=== PATIENT | female | born 1995 | race Two or more races ===

== ENCOUNTER 2024-03-17 14:29 | Emergency (ER) | payer OTHER ==
[~2024-03-17] VITALS: Ht 165.1 cm; Wt 104.7 kg
--- NOTE | 2024-03-17 15:12 | ED.PDOC ---
GI ASSESSMENT HPI Comments 28Y F presents to ED for chief complaint RLQ abd pain x3days with nausea and vomiting. Pt denies diarrhea, fever, cough, dysuria, and all other symptoms. Pt states abd pain worsens while urinating. LMP approximately 2 weeks ago. Pt used heating pad and Tylenol but did not feel relief from the symptoms. Chief Complaint: Abdominal Pain Time Seen by MD: 14:44 Reviewed Notes: Nurses Notes, Medications, Allergies Allergies: Coded Allergies: NO KNOWN ALLERGIES (Unverified , 03/17/24) Information Source: Patient Mode of Arrival: Ambulatory Timing: Days Duration: Since onset Quality: Sharp Vomitus: Watery Stool: Normal Severity: Mild Recent: None Recent Hx of: None Pain Location: RLQ Modifying Factors: Nothing Associated sign and symptoms: Nausea, Vomiting, Abdominal Pain Past Medical History PAST MEDICAL HISTORY: Denies Surgical History: Denies all surgeries PEAT SHREDDER TENDER History: No Pertinent PEAT SHREDDER TENDER History Family History Family History: Unknown Social History Smoker: Non-Smoker Alcohol: Denies ETOH Use Drugs: Denies Drug Use Lives In: Home Constitutional: denies: chills, diaphoresis, fatigue, fever, malaise, sweats, weakness, others EENTM: denies: blurred vision, double vision, ear bleeding, ear discharge, ear drainage, ear pain, ear ringing, eye pain, eye redness, hearing loss, mouth pain, mouth swelling, nasal discharge, nose bleeding, nose congestion, nose pain , photophobia, tearing, throat pain, throat swelling, voice changes, others Respiratory: denies: cough, hemoptysis, orthopnea, SOB at rest, shortness of breath, SOB with excertion, stridor, wheezing, others Cardiovascular: denies: chest pain, dizzy spells, diaphoresis, Dyspnea on exertion, edema, irregular heart beat, left arm pain, lightheadedness, palpitations, PND, syncope, others Gastrointestinal: reports: abdominal pain, nausea, vomiting; denies: abdomen distended, blood streaked bowels, constipated, diarrhea, dysphagia, difficulty swallowing, hematemesis, melena, poor appetite, poor fluid intake, rectal bleeding, rectal pain, others Genitourinary: denies: abnormal vagina bleeding, burning, dyspareunia, dysuria, flank pain, frequency, hematuria, incontinence, pain, , vagina discharge, urgency, others Neurological: denies: dizziness, fainting, headache, left sided numbness, left sided weakness, numbness, paresthesia, pre-existing deficit, right sided nu mbness, right sided weakness, seizure, speech problems, tingling, tremors, weakness, others Musculoskeletal: denies: back pain, gout, joint pain, joint swelling, muscle pain, muscle stiffness, neck pain, others Integumetry: denies: bruises, change in color, change in hair/nails, dryness, laceration, lesions, lumps, rash, wounds, others Allergic/Immunocompromised: denies: Difficulty Healing, Frequent Infections, Hives, Itching, others Hematologic/Lymphatic: denies: anemia, blood clots, easy bleeding, easy bruising, swollen glands, others Endocrine: denies: excessive hunger, excessive sweating, excessive thirst, excessive urination, flushing, intolerance to cold, intolerance to heat, unexplained weight gain, unexplained weight loss, others Psychiatric: denies: anxiety, bipolar disorder, depression, hopeless, panic disorder, schizophrenia, sleepless, suicidal, others All Other Systems: Reviewed and Negative Physical Exam General Appearance: No Apparent Distress, Normal HEENT: Normal ENT Inspection, Pharynx Normal, TMs Normal Neck: Full Range of Motion, Non-Tender, Normal, Normal Inspection Respiratory: Chest Non-Tender, Lungs Clear, No Accessory Muscle Use, No Respiratory Distress, Normal Breath Sounds Cardiovascular: No Edema, No JVD, No Murmur, No Gallop, Normal Peripheral Pulses, Regular Rate/Rhythm Breast Exam: Deferred Gastrointestinal: No Organomegaly, Non Tender, No Pulsatile Mass, Normal Bowel Sounds, Soft Genitalia: Deferred Pelvic: Deferred Rectal: Deferred Extremities: No calf tenderness, Normal capillary refill, Normal inspection, Normal range of motion, Non-tender, No pedal edema Musculoskeletal : Apperance: Normal Neurologic: Alert, nursing assistants teacher II-XII nml as Tested, No Motor Deficits, Normal Affect, Normal Mood, No Sensory Deficits Cerebellar Function: NOT DONE Reflexes: NOT DONE Skin: Dry, Normal Color, Warm Lymphatic: No Adenopathy Was a procedure done? Was a procedure done?: No GI differential Dx Differential Diagnosis: Appendicitis, Gastritis/PUD, Gastroenteritis, Electrolyte Imbalance, Bacterial, Viral X-Ray, Labs, Meds, VS Vital Signs Date Time Temp Pulse Resp B/P (MAP) Pulse Ox O2 Delivery O2 Flow Rate FiO2 03/17/24 18:56 91 16 95 Room Air* 0 21 03/17/24 18:42 98.9 91 16 152/83 (106) 95 98.9 03/17/24 18:42 91 16 95 Room Air 03/17/24 14:38 98.9 91 18 148/86 (106) 95 Lab Test 03/17/24 16:19 03/17/24 15:11 Range/Units Urine Color Light-orange Yellow Urine Clarity Ex.turbid Clear Urine pH 5.5 5.0-9.0 Urine Specific [place] 1.033 1.001-1.035 Urine Protein Trace H Negative Urine Ketones Negative Negative Urine Blood Negative Negative /uL Urine Nitrite Negative Negative Urine Bilirubin Negative Negative Urine Urobilinogen Normal Negative mg/dL Urine Leukocyte Esterase Negative Negative /uL Urine RBC 2 0 - 4 /hpf Urine WBC 33 0 - 5 /hpf Urine Squamous Epithelial Cells Few <5 /hpf Urine Bacteria None seen None Seen /hpf Urine Mucus Few None Seen Urine Glucose Normal Normal mg/dL Urine Test Negative Negative White Blood Count 10.6 4.4-10.8 10^3/uL Red Blood Count 5.20 4.0-5.20 10^6/uL Hemoglobin 15.5 12.2-16.2 g/dL Hematocrit 45.3 36.0-46.0 % Mean Corpuscular Volume 87.0 80.0-100.0 fL Mean Corpuscular Hemoglobin 29.8 28.0-32.0 pg Mean Corpuscular Hemoglobin Concent 34.3 32.0-36.0 g/dL Red Cell Distribution Width 13.6 11.8-14.3 % Platelet Count 346 140-450 10^3/uL Mean Platelet Volume 7.1 6.9-10.8 fL Neutrophils (%) (Auto) 63.6 37.0-80.0 % Lymphocytes (%) (Auto) 29.0 10.0-50.0 % Monocytes (%) (Auto) 6.0 0.0-12.0 % Eosinophils (%) (Auto) 1.0 0.0-7.0 % Basophils (%) (Auto) 0.4 0.0-2.0 % Neutrophils # (Auto) 6.7 1.6-8.6 10 ^3/uL Lymphocytes # (Auto) 3.1 0.4-5.4 10 ^3/uL Monocytes # (Auto) 0.6 0-1.3 10 ^3/uL Eosinophils # (Auto) 0.1 0-0.8 10 ^3/uL Basophils # (Auto) 0 0-0.2 10 ^3/uL Nucleated Red Blood Cells 0.1 % Sodium Level 140 136-145 mmol/L Potassium Level 4.1 3.5-5.1 mmol/L Chloride Level 107 98-107 mmol/L Carbon Dioxide Level 26 20-31 mmol/L Anion Gap 7 5-15 Blood Urea Nitrogen 11 9-23 mg/dL Creatinine 0.89 0.550-1.02 mg/dL Glomerular Filtration Rate Calc 91 >90 mL/min BUN/Creatinine Ratio 12.4 10.0-20.0 Serum Glucose 96 74-106 mg/dL Calcium Level 9.9 8.7-10.4 mg/dL Total Bilirubin 1.1 H 0.2-1.0 mg/dL Aspartate Amino Transferase (AST) 30 13-40 U/L Alanine Aminotransferase (ALT) 78 H 7-40 U/L Alkaline Phosphatase 76 46-116 U/L Total Protein 7.5 5.7-8.2 g/dL Albumin 4.7 3.2-4.8 g/dL Current Medications Medications (Trade) Dose Ordered Sig/Naima Route Start Time Stop Time Status Last Admin Sodium Chloride 1,000 ml @ 1,000 mls/hr Q1H ONCE IV 03/17/24 15:00 03/17/24 15:59 DC 03/17/24 18:46 Ondansetron HCl (Zofran) 4 mg ONCE ONCE IV 03/17/24 15:00 03/17/24 15:01 DC 03/17/24 18:54 Ketorolac Tromethamine (Toradol Injection) 15 mg ONCE ONCE IV 03/17/24 15:00 03/17/24 15:01 DC 03/17/24 18:55 Time of 1ST Reevaluation: 15:14 Reevaluation 1ST: Unchanged Patient Education/Counseling: Diagnosis, Treatment Family Education/Counseling: No Family Present Departure 1 Departure Time of Disposition: 21:21 (Patient presented with abdominal pain that was concerning for possible appendicits, gastritis, cholecystitis, colitis, gastroenteritis, or orther possible surgical emergency. Data: 1. I ordered and reviewed the result of at least 3 labs including a CBC, BMP, and Urinalysis. 2. I independently interpreted the following tests: CT Abdoment and Pelvis is concerning for of right ovarian cyst .Risk:This patient has a high risk of morbidity due to further diagnostic testing or treatment and may suffer from an acute abdominal process disorder. Fortunately workup reveals urinary tract infection right ovarian cyst and patient can be safely discharged to home with outpatient follow up.) Impression: Primary Impression: Right ovarian cyst Additional Impression: Cystitis Disposition: HOME / SELF CARE / HOMELESS Condition: Stable Referrals: VIKY BRYAN DO Additional Instructions: You have a urinary tract infection and a right ovarian cyst. You were prescribed antibiotics. Please take as directed. You were referred to our OBGYN regarding your cyst. Please call for an appointment. For pain you can take the followinam: Ibuprofen 400mg with food Noon: Acetaminophen 1000mg 4pm: Ibuprofen 400mg with food 8pm: Acetaminophen 1000mg You should follow up with your regular doctor within one week to ensure you are doing better. If your symptoms worsen or you have any other concerns then please return to the ER. e-Prescriptions Cefdinir (Cefdinir) 300 Mg Cap 1 CAP PO BID for 7 Days, #14 CAP Prov: MANAS CELIS MD 03/17/24 Discharged With: Self Critical Care Note Critical Care Time?: No Stability Stability form required: No Heart Score Heart Score: Heart Score Response (Comments) Value History N/A 0 EKG N/A 0 Age N/A 0 Risk Factors N/A 0 Troponin N/A 0 Total 0 I personally scribed for MANAS CELIS MD ([email or web address]) on 03/17/24 at 15:12. Electronically submitted by Brenda Almazan ([facility] MANAS CELIS MD Mar 17, 2024 15:12
[2024-03-17 15:32] LABS: Basophils # (auto) 0 10 ^3/uL (0-0.2); Basophils % (auto) 0.4 % (0.0-2.0); Eosinophils # (auto) 0.1 10 ^3/uL (0-0.8); Hematocrit 45.3 % (36.0-46.0); Hemoglobin 15.5 g/dL (12.2-16.2); Lymphocytes # (auto) 3.1 10 ^3/uL (0.4-5.4); Mean Corpuscular Hemoglobin 29.8 pg (28.0-32.0); Mean Corpuscular Hgb Conc. 34.3 g/dL (32.0-36.0); Monocytes # (auto) 0.6 10 ^3/uL (0-1.3); Neutrophils # (auto) 6.7 10 ^3/uL (1.6-8.6); Neutrophils % (auto) 63.6 % (37.0-80.0); Nucleated Red Blood Cells % 0.1 %; Platelet Count (auto) 346 10^3/uL (140-450); Red Cell Distribution Width 13.6 % (11.8-14.3); White Blood Cell 10.6 10^3/uL (4.4-10.8)
[2024-03-17 15:46] LABS: Albumin 4.7 g/dL (3.2-4.8); Alkaline Phosphatase 76 U/L (46-116); Anion Gap 7 (5-15); Aspartate Aminotransferase 30 U/L (13-40); BUN/Creatinine Ratio 12.4 (10.0-20.0); Bilirubin, Total 1.1 mg/dL (0.2-1.0); Blood Urea Nitrogen 11 mg/dL (9-23); Calcium 9.9 mg/dL (8.7-10.4); Carbon Dioxide 26 mmol/L (20-31); Glucose 96 mg/dL (74-106); Potassium 4.1 mmol/L (3.5-5.1); Sodium 140 mmol/L (136-145); Total Protein 7.5 g/dL (5.7-8.2)
[2024-03-17 15:47] LABS: Alanine Aminotransferase 78 U/L (7-40); Chloride 107 mmol/L (98-107)
[2024-03-17 16:21] LABS: Urine Bacteria None Seen /hpf (None Seen)
[2024-03-17 16:37] LABS: Urine Blood Negative /uL (Negative); Urine Clarity Ex.Turbid (Clear); Urine Color Light-Orange (Yellow); Urine Mucus FEW (None Seen); Urine Protein, UAD TRACE (Negative); Urine Specific Gravity 1.033 (1.001-1.035); Urine Urobilinogen Normal (Negative); Urine WBC 33 /hpf (0 - 5); Urine pH 5.5 (5.0-9.0)
[2024-03-17] MEDS: SODIUM CHLORIDE 0.9% 1,000 ML IV ONE (18:46)
[2024-03-17] MEDS: ONDANSETRON HCL 4 MG/2 ML VIAL IV ONE (18:54)
[2024-03-17] MEDS: KETOROLAC TROMETH 30 MG/ML 1ML VIAL IV ONE (18:55)
[2024-03-17 18:56] VITALS: PULSE 91; RESP 16; O2SAT 95
[2024-03-17] MEDS: IOHEXOL 300 MG/ML 100ML BOTTLE IJ ONE (20:43)
--- NOTE | 2024-03-17 21:06 | DVH ---
CLINICAL HISTORY: rlq pain TECHNIQUE: CT of the abdomen and pelvis was performed with intravenous contrast. 100 mL Omnipaque 300 injected. This exam was performed according to our departmental dose optimization program. Up-to-petros e CT equipment and radiation dose reduction techniques are utilized as appropriate. COMPARISON: None FINDINGS: Lower Thorax: Unremarkable. Liver and Biliary system: Mild hepatomegaly measuring 18 cm craniocaudal width diffuse hepatic steato sis. Otherwise unremarkable. Spleen: Mild Splenomegaly. Adrenal Glands and Kidneys: Unremarkable. Pancreas and Retroperitoneum: Unremarkable. Aorta and Major Vessels: Unremarkable. Bowel, Mesentery and Peritoneal space: Unremarkable. Pelvis: There is a cyst of the right ovary measuring 5.3 x 7.3 cm on series 2, image 80. The left ova ry contains small cysts or prominent follicles. The uterus is grossly unremarkable. There is no pelvi c lymphadenopathy. Abdominal wall and Osseous Structures: No destructive osseous lesion. IMPRESSION: 1. There is a cystic lesion of the right ovary measuring up to 7.3 cm. Consider characterization wit h pelvic ultrasound if clinically indicated. 2. Mild hepatosplenomegaly with diffuse hepatic steatosis. 3. No bowel obstruction, fluid collection, or free air. Normal appendix.
[2024-03-17] MEDS ORDERED: CEFD300C2 PO (21:23)
[2024-03-17 22:02] VITALS: BP 146/85; PULSE 82; RESP 20; TEMP 98.3; O2SAT 97
[2024-03-17] MEDS: cefTRIAXone 1GM/50ML D5W 50 ML IV ONE (22:03)
== END 2024-03-17 22:42 | disposition home or self-care (01) ==
LOC: ER 14:29
DX: N30.90 Cystitis, unspecified without hematuria (principal); N83.201 Unspecified ovarian cyst, right side
CPT/HCPCS: 36415; 74177; 80053; 81001; 81025; 85025; 96361; 96365; 96375; 99285; J0696; J1885; J2405; J7030; Q9967